=== PATIENT | male | born 1955 | race Caucasian/White ===

== ENCOUNTER 2022-01-17 15:06 | Emergency (ER) | payer OTHER, MEDICARE ==
[2022-01-17 15:14] VITALS: BP 143/84; PULSE 86; RESP 19; TEMP 98.3
[2022-01-17] MEDS ORDERED: DIPHTH,PERTUSS(ACELL),TET 0.5 ML DISP.SYRIN IM ONE ×2 (17:01→17:03)
== END 2022-01-17 18:36 | disposition home or self-care (01) ==
LOC: JERFT 15:06
PROC: 0HQ1XZZ Repair Face Skin, External Approach (ICD-10-PCS; principal; 2022-01-17)
PROC: 3E0234Z Introduction of Serum, Toxoid and Vaccine into Muscle, Percutaneous Approach (ICD-10-PCS; 2022-01-17)
DX: S01.112A Laceration without foreign body of left eyelid and periocular area, initial encounter (principal); S80.211A Abrasion, right knee, initial encounter; S80.212A Abrasion, left knee, initial encounter; W01.0XXA Fall on same level from slipping, tripping and stumbling without subsequent striking against object, initial encounter
CPT/HCPCS: 12013; 90471; 90715; 99282-25

== ENCOUNTER 2022-01-24 13:32 | Emergency (ER) | payer OTHER, MEDICARE ==
[2022-01-24 13:43] VITALS: BP 133/84; PULSE 81; RESP 18; TEMP 97.4; BMI 22.5
== END 2022-01-24 14:26 | disposition home or self-care (01) ==
LOC: JER 13:32
DX: S01.81XA Laceration without foreign body of other part of head, initial encounter (principal); W19.XXXA Unspecified fall, initial encounter; Z48.02 Encounter for removal of sutures
CPT/HCPCS: 99281-25